=== PATIENT | male | born 1990 | race Caucasian/White ===

== ENCOUNTER 2022-04-08 18:24 | Emergency (ER) | payer MEDICARE, MEDICAID | END 2022-04-08 21:45 | disposition left against medical advice (07) | LOC: DL.ED 18:24 | DX: Z53.21 Procedure and treatment not carried out due to patient leaving prior to being seen by health care provider (principal) ==

== ENCOUNTER 2022-04-26 17:44 | Emergency (ER) | payer MEDICARE, MEDICAID ==
[2022-04-26] MEDS ORDERED: OLANZapine 5 MG Tab PO ONE (17:45)
[2022-04-26] MEDS: OLANZapine 5 MG Tab ONE (19:27)
== END 2022-04-26 19:30 | disposition home or self-care (01) ==
LOC: DL.ED 17:44
DX: F20.0 Paranoid schizophrenia (principal); Z72.0 Tobacco use; Z91.048 Other nonmedicinal substance allergy status
CPT/HCPCS: 99284; A9270-GY

== ENCOUNTER 2024-08-07 14:48 | Emergency (ER) | payer MEDICARE, MEDICAID | END 2024-08-07 15:17 | disposition home or self-care (01) | LOC: DL.ED 14:48 | DX: U07.0 Vaping-related disorder (principal); R61 Generalized hyperhidrosis; F20.0 Paranoid schizophrenia; Z91.048 Other nonmedicinal substance allergy status; Z79.899 Other long term (current) drug therapy | CPT/HCPCS: 82947; 99284 ==